=== PATIENT | male | born 1945 | race African-American/Black ===

== ENCOUNTER 2022-08-06 09:45 | Inpatient (IN) ==
[2022-08-06 10:21] LABS: Basophils % 0.3 % (0.0-0.8); Eosinophils % 0.3 % (0.00-10.9); Hematocrit 32.9 VOL% (42.0-52.0); Hemoglobin 10.1 GM/DL (14.0-18.0); Immature Granulocytes % 0.5 %; Immature Granulocytes Absolute 0.03 #; Lymphocytes # 1.2 10*3/uL (1.4-4.0); Lymphocytes % 20.4 % (21.2-54.2); Mean Corpuscular HGB Conc 30.7 GM/DL (32-36); Mean Corpuscular Volume 86.8 FL (87-102); Mean Platelet Volume 9.1 FL (9.6-12.0); Monocytes # 0.4 10*3/uL (0.11-0.8); Monocytes % 6.2 % (1.7-12.7); Neutrophils % 72.3 % (38.7-73.9); Platelet Count 281 T/CUMM (130-400); Red Blood Count 3.79 MC/CUMM (3.8-5.5); Red Cell Distribution Width 14.3 % (9.3-17.3)
[2022-08-06 10:45] LABS: Albumin 3.2 G/DL (3.4-5.0); Bilirubin,Total 0.4 MG/DL (0.20-1.00); Calcium 9.2 MG/DL (8.5-10.1); Osmolality,Calculated 281.7 MOS/KG (273-304); Potassium 3.9 MMOL/L (3.5-5.1); Total Protein 7.7 G/DL (6.4-8.2)
[2022-08-06] MEDS ORDERED: FUROSEMIDE 40 MG/4 ML VIAL IV STA (14:27)
[2022-08-06] MEDS ORDERED: NITROGLYCERIN 2% OINT 1 INCH/GM PACK TOP ONE (14:47)
[2022-08-06] MEDS ORDERED: ASPIRIN 325 MG TABLET ONE (14:47)
[2022-08-06] MEDS ORDERED: NITROGLYCERIN 2% OINT 1 INCH/GM PACK TOP STA (15:00)
[2022-08-06] MEDS ORDERED: ASPIRIN 325 MG TABLET PO STA (15:00)
[2022-08-06] MEDS ORDERED: ACETAMINOPHEN 325 MG TABLET PO PRN (15:14)
[2022-08-06] MEDS ORDERED: ONDANSETRON 4 MG/2 ML VIAL IV PRN (15:14)
[2022-08-06] MEDS ORDERED: hydrALAZINE 20 MG/1 ML VIAL IV PRN (15:14)
[2022-08-06] MEDS: ENOXAPARIN 80 MG/0.8 ML SYRINGE SUBCUT SCH (15:36)
[2022-08-06] MEDS: carvediloL 3.125 MG TABLET PO SCH (15:36)
[2022-08-06] MEDS ORDERED: MORPHINE 2 MG/1 ML SYRINGE IV STA (15:41)
[2022-08-06 16:13] LABS: % Iron Saturation 16.9 % (18-50); Ferritin 218.4 ng/mL (26-388)
[2022-08-06 16:14] LABS: Folate 8.64 NG/ML (5.38-24.0)
[2022-08-06] MEDS: FUROSEMIDE 40 MG/4 ML VIAL IV SCH (21:43)
[2022-08-07] MEDS: ENOXAPARIN 80 MG/0.8 ML SYRINGE SUBCUT SCH ×2 (04:05→15:57)
[2022-08-07] MEDS: carvediloL 3.125 MG TABLET PO SCH ×2 (04:05→15:57)
[2022-08-07 04:43] LABS: Basophils % 0.5 % (0.0-0.8); Eosinophils % 0.6 % (0.00-10.9); Hematocrit 30.9 VOL% (42.0-52.0); Hemoglobin 9.6 GM/DL (14.0-18.0); Immature Granulocytes % 0.5 %; Immature Granulocytes Absolute 0.03 #; Lymphocytes # 1.1 10*3/uL (1.4-4.0); Lymphocytes % 17.3 % (21.2-54.2); Mean Corpuscular HGB Conc 31.1 GM/DL (32-36); Mean Corpuscular Volume 84.4 FL (87-102); Mean Platelet Volume 9.3 FL (9.6-12.0); Monocytes # 0.4 10*3/uL (0.11-0.8); Monocytes % 5.7 % (1.7-12.7); Neutrophils % 75.4 % (38.7-73.9); Platelet Count 280 T/CUMM (130-400); Red Blood Count 3.66 MC/CUMM (3.8-5.5); Red Cell Distribution Width 14.3 % (9.3-17.3); White Blood Count 6.5 T/CUMM (4-12)
[2022-08-07 05:10] LABS: Albumin 2.7 G/DL (3.4-5.0); Bilirubin,Total 0.4 MG/DL (0.20-1.00); Calcium 9.2 MG/DL (8.5-10.1); Osmolality,Calculated 275.2 MOS/KG (273-304); Potassium 3.8 MMOL/L (3.5-5.1); Risk Ratio 4.31; Thyroid Stimulating Hormone 2.88 uIU/ml (0.358-3.74); Total Protein 7.5 G/DL (6.4-8.2); VLDL Cholesterol 20.6 MG/DL
[2022-08-07] MEDS: SIMVASTATIN 40 MG TABLET PO SCH (09:08)
[2022-08-07] MEDS: ASPIRIN EC 81 MG TABLET PO SCH (09:08)
[2022-08-07] MEDS: PANTOPRAZOLE 40 MG TABLET PO SCH (09:08)
[2022-08-07] MEDS: FUROSEMIDE 40 MG/4 ML VIAL IV SCH ×2 (09:09→22:09)
[2022-08-07] MEDS: hydrALAZINE 10 MG TABLET PO SCH ×3 (09:14→20:23)
[2022-08-07] MEDS: FERRIC GLUCONATE COMPLEX 125 MG in SODIUM CHLORIDE 0.9% 100 ML IV SCH (09:14)
[2022-08-07] MEDS: NICOTINE 14 MG/24 HR PATCH TRANSDERM SCH (09:14)
[2022-08-08 06:14] LABS: Osmolality,Calculated 274.2 MOS/KG (273-304); Potassium 3.4 MMOL/L (3.5-5.1)
[2022-08-08 06:34] LABS: Albumin 2.7 G/DL (3.4-5.0); Bilirubin,Direct 0.19 MG/DL (0.0-0.20); Bilirubin,Indirect 0.4 MG/DL (0.0-1.0); Bilirubin,Total 0.6 MG/DL (0.20-1.00); Total Protein 6.2 G/DL (6.4-8.2)
[2022-08-08] MEDS ORDERED: POTASSIUM CHLORIDE 20 MEQ TABLET PO ONE (08:19)
[2022-08-08 08:45] VITALS: BP 114/71
[2022-08-08] MEDS: FERRIC GLUCONATE COMPLEX 125 MG in SODIUM CHLORIDE 0.9% 100 ML IV SCH (08:48)
[2022-08-08] MEDS: ASPIRIN EC 81 MG TABLET PO SCH (08:50)
[2022-08-08] MEDS: PANTOPRAZOLE 40 MG TABLET PO SCH (08:50)
[2022-08-08] MEDS: FUROSEMIDE 40 MG/4 ML VIAL IV SCH (08:50)
[2022-08-08] MEDS: hydrALAZINE 10 MG TABLET PO SCH (08:50)
[2022-08-08] MEDS: SIMVASTATIN 40 MG TABLET PO SCH (08:51)
[2022-08-08] MEDS: NICOTINE 14 MG/24 HR PATCH TRANSDERM SCH (08:55)
[2022-08-08] MEDS ORDERED: ENOXAPARIN 80 MG/0.8 ML SYRINGE SUBCUT SCH (09:00)
[2022-08-08] MEDS ORDERED: carvediloL 3.125 MG TABLET PO SCH (09:00)
== END 2022-08-08 12:05 | disposition home or self-care (01) | DRG 280 ==
LOC: N.ED 09:45 → N.EDINP 15:14 → N.TELES 15:59
PROVIDERS: ADMIT Internal Medicine; ATTEND Internal Medicine

== ENCOUNTER 2022-09-09 07:56 | Inpatient (IN) ==
[2022-09-09 08:29] LABS: Basophils % 0.1 % (0.0-0.8); Hemoglobin 8.9 GM/DL (14.0-18.0); Immature Granulocytes Absolute 0.21 #; Lymphocytes # 2.3 10*3/uL (1.4-4.0); Mean Corpuscular HGB Conc 29.7 GM/DL (32-36); Mean Corpuscular Volume 84.5 FL (87-102); Mean Platelet Volume 8.7 FL (9.6-12.0); Monocytes # 1.3 10*3/uL (0.11-0.8); Monocytes % 6.5 % (1.7-12.7); Neutrophils % 81.4 % (38.7-73.9); Platelet Count 437 T/CUMM (130-400); Red Blood Count 3.55 MC/CUMM (3.8-5.5); Red Cell Distribution Width 16.9 % (9.3-17.3); White Blood Count 20.5 T/CUMM (4-12)
[2022-09-09 08:48] LABS: Platelet Estimate Adequate
[2022-09-09 08:49] LABS: Hypochromia Slight; Microcytosis Slight
[2022-09-09 08:55] LABS: Albumin 2.5 G/DL (3.4-5.0); Bilirubin,Total 1.2 MG/DL (0.20-1.00); Calcium 9.1 MG/DL (8.5-10.1); Osmolality,Calculated 288.1 MOS/KG (273-304); Potassium 5.2 MMOL/L (3.5-5.1); Total Protein 7.6 G/DL (6.4-8.2)
[2022-09-09 09:10] LABS: Lymphocytes 10 % (20-55); Total Cells Counted 100
[2022-09-09] MEDS ORDERED: MORPHINE 2 MG/1 ML SYRINGE IV ONE (09:19)
[2022-09-09] MEDS ORDERED: ONDANSETRON 4 MG/2 ML VIAL IV ONE (09:19)
[2022-09-09] MEDS ORDERED: ASPIRIN 325 MG TABLET PO STA (09:19)
[2022-09-09 09:55] LABS: INR 1.1; PT Patient Result 12.5 SECS (10.1-12.1)
[2022-09-09] MEDS ORDERED: PIPERACILLIN/TAZOBACTAM 3,375 MG in SODIUM CHLORIDE 0.9% 100 ML IV STA (10:11)
[2022-09-09] MEDS ORDERED: hydrALAZINE 20 MG/1 ML VIAL IV PRN (10:27)
[2022-09-09] MEDS ORDERED: DOCUSATE SODIUM 100 MG CAPSULE PO PRN (10:27)
[2022-09-09] MEDS ORDERED: MORPHINE 2 MG/1 ML SYRINGE IV PRN (10:27)
[2022-09-09] MEDS ORDERED: ONDANSETRON 4 MG/2 ML VIAL IV PRN (10:27)
[2022-09-09] MEDS ORDERED: carvediloL 3.125 MG TABLET PO SCH (10:30)
[2022-09-09] MEDS: SODIUM CHLORIDE 0.9% 1,000 ML IV SCH (10:52)
[2022-09-09] MEDS ORDERED: SODIUM CHLORIDE 0.9% 1,000 ML IV STA (11:00)
[2022-09-09] MEDS ORDERED: GLUCAGON 1 MG VIAL IM PRN (11:42)
[2022-09-09] MEDS ORDERED: DEXTROSE 10% 250 ML BAG IV PRN (11:47)
[2022-09-09 12:41] LABS: Cancer Antigen 19-9 4.89 U/ML (0-35); Prostate Specific Antigen Diag < 0.03 NG/ML (0-3.60)
[2022-09-09 13:15] LABS: Hepatitis B Core IgM Quant 0.06 Index; Hepatitis B Surface Ag Quant < 0.10 Index; Hepatitis B Surface Ag Result Non-Reactive (NonReactive); Hepatitis C Virus Ab Quant < 0.02 Index; Hepatitis C Virus Ab Result Non-Reactive (NonReactive)
[2022-09-09] MEDS ORDERED: SODIUM CHLORIDE 0.9% 500 ML IV STA (14:55)
[2022-09-09 15:33] LABS: Hematocrit 24.8 VOL% (42.0-52.0); Hemoglobin 7.5 GM/DL (14.0-18.0)
[2022-09-09 15:33] LABS: Amorphous Crystals,Urine Occasional /HPF (Few); Bacteria,Urine Occasional /HPF (Few); Hyaline Casts,Urine 1 /LPF (0-3); RBC,Urine 1 /HPF (0-4); Squamous Epithelial Cell,Urine Occasional /HPF (0-10); Urine Appearance Clear (Clear); Urine Color Yellow (Yellow)
[2022-09-09 15:34] LABS: Bilirubin,Urine Negative (Negative); Blood, Urine Negative (Negative); Glucose,Urine (UA) Negative (Negative); Ketones,Urine Negative (Negative); Nitrite,Urine Negative (Negative); Protein,Urine 100 mg/dL (Negative)
[2022-09-09] MEDS ORDERED: SODIUM CHLORIDE 0.9% 1,000 ML IV PRN ×2 (15:43→15:45)
[2022-09-09] MEDS: SODIUM ZIRCONIUM CYCLOSILICATE 10 GM PACK PO SCH ×2 (15:57→21:42)
[2022-09-09 16:22] LABS: Arterial Base Excess iSTAT -8 MMOL/L (-2.5-2.5); Arterial O2 Saturation iSTAT 98 % (95-100); Arterial PCO2 iSTAT 32 MM HG (35-48); Arterial PO2 iSTAT 110 MM HG (80-95); Arterial Total CO2 iSTAT 18 MMO/L (23-27); Arterial pH iSTAT 7.338 (7.35-7.45)
[2022-09-09 17:01] LABS: Basophils % 0.1 % (0.0-0.8); Hematocrit 25.9 VOL% (42.0-52.0); Hemoglobin 7.7 GM/DL (14.0-18.0); Immature Granulocytes % 0.9 %; Immature Granulocytes Absolute 0.14 #; Lymphocytes # 1.4 10*3/uL (1.4-4.0); Lymphocytes % 8.3 % (21.2-54.2); Mean Corpuscular HGB Conc 29.7 GM/DL (32-36); Mean Corpuscular Volume 84.9 FL (87-102); Mean Platelet Volume 8.8 FL (9.6-12.0); Monocytes # 0.9 10*3/uL (0.11-0.8); Monocytes % 5.6 % (1.7-12.7); Neutrophils % 85.1 % (38.7-73.9); Platelet Count 340 T/CUMM (130-400); Red Blood Count 3.05 MC/CUMM (3.8-5.5); Red Cell Distribution Width 16.9 % (9.3-17.3); White Blood Count 16.2 T/CUMM (4-12)
[2022-09-09] MEDS ORDERED: SODIUM CHLORIDE 0.9% 1,000 ML IV ONE (17:13)
[2022-09-09 17:19] LABS: Calcium 8.4 MG/DL (8.5-10.1); Potassium 5.4 MMOL/L (3.5-5.1)
[2022-09-09] MEDS ORDERED: SODIUM BICARBONATE 50 MEQ/50 ML VIAL IV ONE (17:25)
[2022-09-09] MEDS ORDERED: DOPamine 800 MG/250 ML PREMIX IV PRN (17:28)
[2022-09-09] MEDS: INSULIN LISPRO 100 UNIT/ML SUBCUT SCH ×2 (17:40→21:42)
[2022-09-09] MEDS: PIPERACILLIN/TAZOBACTAM 3,375 MG in SODIUM CHLORIDE 0.9% 100 ML IV SCH (18:30)
[2022-09-10] MEDS: PIPERACILLIN/TAZOBACTAM 3,375 MG in SODIUM CHLORIDE 0.9% 100 ML IV SCH ×3 (03:28→18:00)
[2022-09-10] MEDS: SODIUM CHLORIDE 0.9% 1,000 ML IV SCH ×3 (03:30→23:15)
[2022-09-10 05:02] LABS: Basophils % 0.1 % (0.0-0.8); Eosinophils % 0.1 % (0.00-10.9); Hematocrit 29.1 VOL% (42.0-52.0); Hemoglobin 9.1 GM/DL (14.0-18.0); Immature Granulocytes % 1.2 %; Immature Granulocytes Absolute 0.19 #; Lymphocytes # 1.2 10*3/uL (1.4-4.0); Lymphocytes % 7.9 % (21.2-54.2); Mean Corpuscular HGB Conc 31.3 GM/DL (32-36); Mean Corpuscular Volume 84.3 FL (87-102); Mean Platelet Volume 8.9 FL (9.6-12.0); Monocytes # 0.8 10*3/uL (0.11-0.8); Monocytes % 5.2 % (1.7-12.7); Neutrophils % 85.5 % (38.7-73.9); Platelet Count 311 T/CUMM (130-400); Red Blood Count 3.45 MC/CUMM (3.8-5.5); Red Cell Distribution Width 16.4 % (9.3-17.3); White Blood Count 15.5 T/CUMM (4-12)
[2022-09-10 05:30] LABS: Albumin 1.7 G/DL (3.4-5.0); Bilirubin,Total 0.8 MG/DL (0.20-1.00); Calcium 8.4 MG/DL (8.5-10.1); Potassium 4.8 MMOL/L (3.5-5.1); Total Protein 6.1 G/DL (6.4-8.2)
[2022-09-10] MEDS: INSULIN LISPRO 100 UNIT/ML SUBCUT SCH ×4 (07:10→20:44)
[2022-09-10] MEDS ORDERED: ASPIRIN EC 81 MG TABLET PO SCH (09:00)
[2022-09-10] MEDS ORDERED: FUROSEMIDE 40 MG TABLET PO SCH (09:00)
[2022-09-10] MEDS: SODIUM ZIRCONIUM CYCLOSILICATE 10 GM PACK PO SCH ×3 (09:05→20:45)
[2022-09-10] MEDS: NICOTINE 14 MG/24 HR PATCH TRANSDERM SCH (09:05)
[2022-09-10] MEDS: CYANOCOBALAMIN 500 MCG TABLET PO SCH (09:05)
[2022-09-10] MEDS: MULTIVITAMIN (CENTRUM) TABLET PO SCH (09:05)
[2022-09-10] MEDS: FERROUS SULFATE 325 MG TABLET PO SCH (09:05)
[2022-09-10] MEDS: PANTOPRAZOLE 40 MG TABLET PO SCH (09:05)
[2022-09-10] MEDS ORDERED: SODIUM CHLORIDE 0.9% 500 ML IV ONE (11:45)
[2022-09-11] MEDS: PIPERACILLIN/TAZOBACTAM 3,375 MG in SODIUM CHLORIDE 0.9% 100 ML IV SCH ×3 (02:39→18:00)
[2022-09-11 04:42] LABS: Basophils % 0.1 % (0.0-0.8); Eosinophils % 0.1 % (0.00-10.9); Hematocrit 28.1 VOL% (42.0-52.0); Hemoglobin 8.8 GM/DL (14.0-18.0); Immature Granulocytes % 1.2 %; Immature Granulocytes Absolute 0.19 #; Lymphocytes # 1.5 10*3/uL (1.4-4.0); Lymphocytes % 9.5 % (21.2-54.2); Mean Corpuscular HGB Conc 31.3 GM/DL (32-36); Mean Corpuscular Volume 83.9 FL (87-102); Mean Platelet Volume 8.6 FL (9.6-12.0); Monocytes # 0.9 10*3/uL (0.11-0.8); Monocytes % 5.6 % (1.7-12.7); Neutrophils % 83.5 % (38.7-73.9); Platelet Count 264 T/CUMM (130-400); Red Blood Count 3.35 MC/CUMM (3.8-5.5); Red Cell Distribution Width 16.6 % (9.3-17.3); White Blood Count 15.3 T/CUMM (4-12)
[2022-09-11 05:08] LABS: Albumin 1.5 G/DL (3.4-5.0); Bilirubin,Total 0.7 MG/DL (0.20-1.00); Calcium 8.3 MG/DL (8.5-10.1); Osmolality,Calculated 290.7 MOS/KG (273-304); Potassium 4.3 MMOL/L (3.5-5.1); Total Protein 5.8 G/DL (6.4-8.2)
[2022-09-11] MEDS: SODIUM CHLORIDE 0.9% 1,000 ML IV SCH (07:00)
[2022-09-11] MEDS: INSULIN LISPRO 100 UNIT/ML SUBCUT SCH ×4 (07:05→20:02)
[2022-09-11] MEDS: SODIUM ZIRCONIUM CYCLOSILICATE 10 GM PACK PO SCH (08:30)
[2022-09-11] MEDS: CYANOCOBALAMIN 500 MCG TABLET PO SCH (08:30)
[2022-09-11] MEDS: PANTOPRAZOLE 40 MG TABLET PO SCH ×2 (08:30→20:08)
[2022-09-11] MEDS: MULTIVITAMIN (CENTRUM) TABLET PO SCH (08:30)
[2022-09-11] MEDS: FERROUS SULFATE 325 MG TABLET PO SCH (08:30)
[2022-09-11] MEDS: NICOTINE 14 MG/24 HR PATCH TRANSDERM SCH (08:35)
[2022-09-11] MEDS ORDERED: POLYETHYLENE GLYCOL POWDER 17 GM PACK PO PRN (09:31)
[2022-09-11] MEDS ORDERED: LACTATED RINGERS 1,000 ML IV ONE (11:34)
[2022-09-12] MEDS: PIPERACILLIN/TAZOBACTAM 3,375 MG in SODIUM CHLORIDE 0.9% 100 ML IV SCH ×3 (03:07→18:23)
[2022-09-12 05:37] LABS: Basophils % 0.2 % (0.0-0.8); Eosinophils % 0.3 % (0.00-10.9); Hematocrit 28.8 VOL% (42.0-52.0); Immature Granulocytes % 1.4 %; Immature Granulocytes Absolute 0.19 #; Lymphocytes # 1.4 10*3/uL (1.4-4.0); Lymphocytes % 9.9 % (21.2-54.2); Mean Corpuscular HGB Conc 31.3 GM/DL (32-36); Mean Corpuscular Volume 85.2 FL (87-102); Mean Platelet Volume 9.2 FL (9.6-12.0); Monocytes # 0.8 10*3/uL (0.11-0.8); Neutrophils % 82.2 % (38.7-73.9); Platelet Count 275 T/CUMM (130-400); Red Blood Count 3.38 MC/CUMM (3.8-5.5); Red Cell Distribution Width 16.9 % (9.3-17.3); White Blood Count 13.9 T/CUMM (4-12)
[2022-09-12 06:05] LABS: Albumin 1.4 G/DL (3.4-5.0); Bilirubin,Total 0.8 MG/DL (0.20-1.00); Calcium 8.2 MG/DL (8.5-10.1); Osmolality,Calculated 286.7 MOS/KG (273-304); Potassium 4.3 MMOL/L (3.5-5.1); Total Protein 5.5 G/DL (6.4-8.2)
[2022-09-12] MEDS: INSULIN LISPRO 100 UNIT/ML SUBCUT SCH ×4 (09:55→20:29)
[2022-09-12] MEDS: SODIUM BICARBONATE 650 MG TABLET PO SCH ×2 (09:56→20:48)
[2022-09-12] MEDS: NICOTINE 14 MG/24 HR PATCH TRANSDERM SCH (09:56)
[2022-09-12] MEDS: FERROUS SULFATE 325 MG TABLET PO SCH (09:56)
[2022-09-12] MEDS: MULTIVITAMIN (CENTRUM) TABLET PO SCH (09:56)
[2022-09-12] MEDS: PANTOPRAZOLE 40 MG TABLET PO SCH ×2 (09:56→20:48)
[2022-09-12] MEDS: CYANOCOBALAMIN 500 MCG TABLET PO SCH (09:57)
[2022-09-13] MEDS: PIPERACILLIN/TAZOBACTAM 3,375 MG in SODIUM CHLORIDE 0.9% 100 ML IV SCH ×3 (01:32→18:28)
[2022-09-13 06:33] LABS: Basophils % 0.2 % (0.0-0.8); Eosinophils % 0.3 % (0.00-10.9); Hematocrit 28.6 VOL% (42.0-52.0); Hemoglobin 8.9 GM/DL (14.0-18.0); Immature Granulocytes % 0.8 %; Lymphocytes # 1.6 10*3/uL (1.4-4.0); Lymphocytes % 12.1 % (21.2-54.2); Mean Corpuscular HGB Conc 31.1 GM/DL (32-36); Mean Corpuscular Volume 85.4 FL (87-102); Mean Platelet Volume 9.6 FL (9.6-12.0); Monocytes # 0.9 10*3/uL (0.11-0.8); Monocytes % 6.8 % (1.7-12.7); Neutrophils % 79.8 % (38.7-73.9); Platelet Count 273 T/CUMM (130-400); Red Blood Count 3.35 MC/CUMM (3.8-5.5); Red Cell Distribution Width 16.9 % (9.3-17.3); White Blood Count 12.8 T/CUMM (4-12)
[2022-09-13 06:52] LABS: Albumin 1.5 G/DL (3.4-5.0); Bilirubin,Total 0.7 MG/DL (0.20-1.00); Calcium 8.4 MG/DL (8.5-10.1); Osmolality,Calculated 283.8 MOS/KG (273-304); Potassium 4.3 MMOL/L (3.5-5.1); Total Protein 5.7 G/DL (6.4-8.2)
[2022-09-13] MEDS: INSULIN LISPRO 100 UNIT/ML SUBCUT SCH ×4 (08:08→21:08)
[2022-09-13] MEDS: MULTIVITAMIN (CENTRUM) TABLET PO SCH (09:47)
[2022-09-13] MEDS: SODIUM BICARBONATE 650 MG TABLET PO SCH ×2 (09:47→21:08)
[2022-09-13] MEDS: NICOTINE 14 MG/24 HR PATCH TRANSDERM SCH (09:47)
[2022-09-13] MEDS: PANTOPRAZOLE 40 MG TABLET PO SCH ×2 (09:48→21:08)
[2022-09-13] MEDS: FERROUS SULFATE 325 MG TABLET PO SCH (09:48)
[2022-09-13] MEDS: CYANOCOBALAMIN 500 MCG TABLET PO SCH (09:48)
[2022-09-13] MEDS ORDERED: LACTULOSE 20 GM/30 ML UDCUP PO ONE (16:16)
[2022-09-13] MEDS: LUBIPROSTONE 8 MCG CAPSULE PO SCH (21:08)
[2022-09-13] MEDS: POLYETHYLENE GLYCOL POWDER 17 GM PACK PO SCH (21:10)
[2022-09-14] MEDS: PIPERACILLIN/TAZOBACTAM 3,375 MG in SODIUM CHLORIDE 0.9% 100 ML IV SCH ×3 (02:06→17:35)
[2022-09-14 06:16] LABS: Basophils % 0.2 % (0.0-0.8); Eosinophils % 0.3 % (0.00-10.9); Hematocrit 27.7 VOL% (42.0-52.0); Hemoglobin 8.6 GM/DL (14.0-18.0); Immature Granulocytes % 0.9 %; Immature Granulocytes Absolute 0.11 #; Lymphocytes # 1.6 10*3/uL (1.4-4.0); Lymphocytes % 12.7 % (21.2-54.2); Mean Corpuscular Volume 84.2 FL (87-102); Mean Platelet Volume 9.3 FL (9.6-12.0); Monocytes # 0.9 10*3/uL (0.11-0.8); Monocytes % 7.1 % (1.7-12.7); Neutrophils % 78.8 % (38.7-73.9); Platelet Count 249 T/CUMM (130-400); Red Blood Count 3.29 MC/CUMM (3.8-5.5); Red Cell Distribution Width 17.2 % (9.3-17.3); White Blood Count 12.7 T/CUMM (4-12)
[2022-09-14 06:34] LABS: Albumin 1.5 G/DL (3.4-5.0); Bilirubin,Total 0.6 MG/DL (0.20-1.00); Calcium 8.4 MG/DL (8.5-10.1); Osmolality,Calculated 284.7 MOS/KG (273-304); Potassium 4.3 MMOL/L (3.5-5.1); Total Protein 5.8 G/DL (6.4-8.2)
[2022-09-14] MEDS: SODIUM BICARBONATE 650 MG TABLET PO SCH ×2 (09:52→21:13)
[2022-09-14] MEDS: CYANOCOBALAMIN 500 MCG TABLET PO SCH (09:52)
[2022-09-14] MEDS: NICOTINE 14 MG/24 HR PATCH TRANSDERM SCH (09:53)
[2022-09-14] MEDS: PANTOPRAZOLE 40 MG TABLET PO SCH ×2 (09:53→21:13)
[2022-09-14] MEDS: MULTIVITAMIN (CENTRUM) TABLET PO SCH (09:53)
[2022-09-14] MEDS: FERROUS SULFATE 325 MG TABLET PO SCH (09:53)
[2022-09-14] MEDS: LUBIPROSTONE 8 MCG CAPSULE PO SCH (09:53)
[2022-09-14] MEDS: INSULIN LISPRO 100 UNIT/ML SUBCUT SCH ×4 (09:56→21:12)
[2022-09-14] MEDS: POLYETHYLENE GLYCOL POWDER 17 GM PACK PO SCH (09:56)
[2022-09-14] MEDS: LINACLOTIDE 145 MCG CAPSULE PO SCH (09:56)
[2022-09-15] MEDS: PIPERACILLIN/TAZOBACTAM 3,375 MG in SODIUM CHLORIDE 0.9% 100 ML IV SCH ×3 (01:52→17:42)
[2022-09-15 06:21] LABS: INR 1.1; PT Patient Result 12.4 SECS (10.1-12.1)
[2022-09-15 06:31] LABS: Osmolality,Calculated 277.1 MOS/KG (273-304); Potassium 4.3 MMOL/L (3.5-5.1)
[2022-09-15 07:08] LABS: Basophils % 0.3 % (0.0-0.8); Eosinophils # 0.1 10*3/uL (0.0-0.87); Eosinophils % 0.5 % (0.00-10.9); Hematocrit 33.3 VOL% (42.0-52.0); Hemoglobin 10.1 GM/DL (14.0-18.0); Immature Granulocytes % 1.1 %; Immature Granulocytes Absolute 0.15 #; Lymphocytes # 1.4 10*3/uL (1.4-4.0); Lymphocytes % 10.2 % (21.2-54.2); Mean Corpuscular HGB Conc 30.3 GM/DL (32-36); Mean Corpuscular Volume 85.4 FL (87-102); Mean Platelet Volume 9.4 FL (9.6-12.0); Monocytes % 7.1 % (1.7-12.7); Neutrophils % 80.8 % (38.7-73.9); Platelet Count 294 T/CUMM (130-400); Red Cell Distribution Width 17.3 % (9.3-17.3); White Blood Count 13.6 T/CUMM (4-12)
[2022-09-15] MEDS: INSULIN LISPRO 100 UNIT/ML SUBCUT SCH ×4 (09:03→20:49)
[2022-09-15] MEDS ORDERED: DIAZEPAM 5 MG TABLET PO ONE (12:55)
[2022-09-15] MEDS: FERROUS SULFATE 325 MG TABLET PO SCH (15:18)
[2022-09-15] MEDS: SODIUM BICARBONATE 650 MG TABLET PO SCH ×3 (15:18→21:25)
[2022-09-15] MEDS: MULTIVITAMIN (CENTRUM) TABLET PO SCH (15:18)
[2022-09-15] MEDS: LINACLOTIDE 145 MCG CAPSULE PO SCH (15:18)
[2022-09-15] MEDS: PANTOPRAZOLE 40 MG TABLET PO SCH ×3 (15:18→21:25)
[2022-09-15] MEDS: CYANOCOBALAMIN 500 MCG TABLET PO SCH (15:19)
[2022-09-15] MEDS: NICOTINE 14 MG/24 HR PATCH TRANSDERM SCH (15:51)
[2022-09-16] MEDS: PIPERACILLIN/TAZOBACTAM 3,375 MG in SODIUM CHLORIDE 0.9% 100 ML IV SCH ×3 (02:21→18:22)
[2022-09-16 05:29] LABS: Basophils % 0.3 % (0.0-0.8); Eosinophils # 0.1 10*3/uL (0.0-0.87); Eosinophils % 0.8 % (0.00-10.9); Hematocrit 29.1 VOL% (42.0-52.0); Hemoglobin 8.9 GM/DL (14.0-18.0); Immature Granulocytes % 0.7 %; Immature Granulocytes Absolute 0.09 #; Lymphocytes # 1.6 10*3/uL (1.4-4.0); Lymphocytes % 12.7 % (21.2-54.2); Mean Corpuscular HGB Conc 30.6 GM/DL (32-36); Mean Corpuscular Volume 86.4 FL (87-102); Mean Platelet Volume 9.4 FL (9.6-12.0); Monocytes # 0.9 10*3/uL (0.11-0.8); Monocytes % 7.1 % (1.7-12.7); Neutrophils % 78.4 % (38.7-73.9); Platelet Count 288 T/CUMM (130-400); Red Blood Count 3.37 MC/CUMM (3.8-5.5); Red Cell Distribution Width 17.5 % (9.3-17.3); White Blood Count 12.4 T/CUMM (4-12)
[2022-09-16 06:19] LABS: Calcium 8.1 MG/DL (8.5-10.1); Osmolality,Calculated 282.7 MOS/KG (273-304); Potassium 4.2 MMOL/L (3.5-5.1)
[2022-09-16] MEDS ORDERED: DIAZEPAM 5 MG TABLET PO ONE (07:29)
[2022-09-16] MEDS: INSULIN LISPRO 100 UNIT/ML SUBCUT SCH ×4 (07:56→20:22)
[2022-09-16] MEDS: LINACLOTIDE 145 MCG CAPSULE PO SCH (07:58)
[2022-09-16] MEDS: NICOTINE 14 MG/24 HR PATCH TRANSDERM SCH (09:19)
[2022-09-16] MEDS: CYANOCOBALAMIN 500 MCG TABLET PO SCH (09:19)
[2022-09-16] MEDS: MULTIVITAMIN (CENTRUM) TABLET PO SCH (09:19)
[2022-09-16] MEDS: SODIUM BICARBONATE 650 MG TABLET PO SCH ×2 (09:19→20:48)
[2022-09-16] MEDS: PANTOPRAZOLE 40 MG TABLET PO SCH ×2 (09:19→20:48)
[2022-09-16] MEDS: FERROUS SULFATE 325 MG TABLET PO SCH (09:19)
[2022-09-17] MEDS: PIPERACILLIN/TAZOBACTAM 3,375 MG in SODIUM CHLORIDE 0.9% 100 ML IV SCH (01:52)
[2022-09-17 06:00] LABS: Basophils % 0.3 % (0.0-0.8); Eosinophils % 0.3 % (0.00-10.9); Hematocrit 28.4 VOL% (42.0-52.0); Hemoglobin 8.5 GM/DL (14.0-18.0); Immature Granulocytes % 0.8 %; Lymphocytes # 1.4 10*3/uL (1.4-4.0); Lymphocytes % 12.1 % (21.2-54.2); Mean Corpuscular HGB Conc 29.9 GM/DL (32-36); Mean Corpuscular Volume 85.8 FL (87-102); Mean Platelet Volume 9.2 FL (9.6-12.0); Monocytes # 0.8 10*3/uL (0.11-0.8); Monocytes % 6.9 % (1.7-12.7); Neutrophils % 79.6 % (38.7-73.9); Platelet Count 254 T/CUMM (130-400); Red Blood Count 3.31 MC/CUMM (3.8-5.5); Red Cell Distribution Width 17.8 % (9.3-17.3); White Blood Count 11.9 T/CUMM (4-12)
[2022-09-17 06:33] LABS: Calcium 7.6 MG/DL (8.5-10.1); Osmolality,Calculated 281.7 MOS/KG (273-304); Potassium 4.6 MMOL/L (3.5-5.1)
[2022-09-17] MEDS: INSULIN LISPRO 100 UNIT/ML SUBCUT SCH ×4 (07:46→20:14)
[2022-09-17] MEDS: NICOTINE 14 MG/24 HR PATCH TRANSDERM SCH (09:10)
[2022-09-17] MEDS: PANTOPRAZOLE 40 MG TABLET PO SCH ×2 (09:10→20:14)
[2022-09-17] MEDS: CYANOCOBALAMIN 500 MCG TABLET PO SCH (09:10)
[2022-09-17] MEDS: SODIUM BICARBONATE 650 MG TABLET PO SCH ×2 (09:10→20:14)
[2022-09-17] MEDS: MULTIVITAMIN (CENTRUM) TABLET PO SCH (09:10)
[2022-09-17] MEDS: LINACLOTIDE 145 MCG CAPSULE PO SCH (09:10)
[2022-09-17] MEDS ORDERED: MAGNESIUM HYDROXIDE SUSP 30 ML UDCUP PO ONE (13:54)
[2022-09-17] MEDS: DOCUSATE SODIUM 100 MG CAPSULE PO SCH ×2 (14:52→20:14)
[2022-09-17] MEDS: POLYETHYLENE GLYCOL POWDER 17 GM PACK PO SCH ×2 (14:52→22:00)
[2022-09-17] MEDS ORDERED: BISACODYL 5 MG TABLET PO ONE (16:42)
[2022-09-17] MEDS ORDERED: POLYETHYLENE GLYCOL POWDER 255 GM BOTTLE PO ONE ×2 (16:42→18:00)
[2022-09-18] MEDS ORDERED: POLYETHYLENE GLYCOL POWDER 255 GM BOTTLE PO ONE (04:00)
[2022-09-18 05:03] LABS: Basophils % 0.1 % (0.0-0.8); Eosinophils % 0.1 % (0.00-10.9); Hematocrit 28.7 VOL% (42.0-52.0); Hemoglobin 9.1 GM/DL (14.0-18.0); Immature Granulocytes % 0.8 %; Immature Granulocytes Absolute 0.12 #; Lymphocytes # 1.3 10*3/uL (1.4-4.0); Lymphocytes % 8.5 % (21.2-54.2); Mean Corpuscular HGB Conc 31.7 GM/DL (32-36); Mean Corpuscular Volume 84.4 FL (87-102); Mean Platelet Volume 9.4 FL (9.6-12.0); Monocytes % 6.4 % (1.7-12.7); Neutrophils % 84.1 % (38.7-73.9); Platelet Count 254 T/CUMM (130-400); Red Cell Distribution Width 17.8 % (9.3-17.3); White Blood Count 15.4 T/CUMM (4-12)
[2022-09-18 05:24] LABS: Calcium 8.4 MG/DL (8.5-10.1); Osmolality,Calculated 279.1 MOS/KG (273-304); Potassium 3.8 MMOL/L (3.5-5.1)
[2022-09-18] MEDS: INSULIN LISPRO 100 UNIT/ML SUBCUT SCH ×4 (07:16→20:32)
[2022-09-18] MEDS: POLYETHYLENE GLYCOL POWDER 17 GM PACK PO SCH ×2 (08:56→20:31)
[2022-09-18] MEDS: LINACLOTIDE 145 MCG CAPSULE PO SCH (08:56)
[2022-09-18] MEDS: DOCUSATE SODIUM 100 MG CAPSULE PO SCH ×2 (08:56→20:31)
[2022-09-18] MEDS: SODIUM CHLORIDE 0.9% 1,000 ML IV SCH (11:18)
[2022-09-18] MEDS ORDERED: propofoL 200 MG/20 ML VIAL IV ONE (12:03)
[2022-09-18] MEDS ORDERED: LIDOCAINE 2% 5 ML VIAL ONE (12:03)
[2022-09-18] MEDS ORDERED: ESMOLOL 100 MG/10 ML VIAL IV ONE (12:05)
[2022-09-18] MEDS: MULTIVITAMIN (CENTRUM) TABLET PO SCH (14:06)
[2022-09-18] MEDS: PANTOPRAZOLE 40 MG TABLET PO SCH ×2 (14:07→20:30)
[2022-09-18] MEDS: NICOTINE 14 MG/24 HR PATCH TRANSDERM SCH (14:07)
[2022-09-18] MEDS: CYANOCOBALAMIN 500 MCG TABLET PO SCH (14:07)
[2022-09-18] MEDS: SODIUM BICARBONATE 650 MG TABLET PO SCH ×2 (14:07→20:31)
[2022-09-19 05:16] LABS: Basophils % 0.2 % (0.0-0.8); Eosinophils % 0.1 % (0.00-10.9); Hematocrit 28.3 VOL% (42.0-52.0); Hemoglobin 8.6 GM/DL (14.0-18.0); Immature Granulocytes Absolute 0.17 #; Lymphocytes # 1.5 10*3/uL (1.4-4.0); Lymphocytes % 8.8 % (21.2-54.2); Mean Corpuscular HGB Conc 30.4 GM/DL (32-36); Mean Corpuscular Volume 83.5 FL (87-102); Mean Platelet Volume 9.5 FL (9.6-12.0); Monocytes % 5.5 % (1.7-12.7); Neutrophils % 84.4 % (38.7-73.9); Platelet Count 251 T/CUMM (130-400); Red Blood Count 3.39 MC/CUMM (3.8-5.5); White Blood Count 17.2 T/CUMM (4-12)
[2022-09-19 05:30] LABS: Calcium 8.3 MG/DL (8.5-10.1); Potassium 3.9 MMOL/L (3.5-5.1)
[2022-09-19] MEDS: INSULIN LISPRO 100 UNIT/ML SUBCUT SCH ×2 (08:25→12:36)
[2022-09-19] MEDS: NICOTINE 14 MG/24 HR PATCH TRANSDERM SCH (09:13)
[2022-09-19] MEDS: SODIUM BICARBONATE 650 MG TABLET PO SCH (09:14)
[2022-09-19] MEDS: PANTOPRAZOLE 40 MG TABLET PO SCH (09:14)
[2022-09-19] MEDS: CYANOCOBALAMIN 500 MCG TABLET PO SCH (09:14)
[2022-09-19] MEDS: MULTIVITAMIN (CENTRUM) TABLET PO SCH (09:14)
[2022-09-19] MEDS: DOCUSATE SODIUM 100 MG CAPSULE PO SCH (09:26)
[2022-09-19] MEDS: POLYETHYLENE GLYCOL POWDER 17 GM PACK PO SCH (09:26)
[2022-09-19] MEDS ORDERED: LUBIPROSTONE 8 MCG CAPSULE PO SCH (10:30)
[2022-09-19 11:17] VITALS: BP 107/52
[2022-09-19] MEDS: SODIUM CHLORIDE 0.9% 500 ML IV SCH (11:47)
[2022-09-19] MEDS: SODIUM CHLORIDE 0.9% 1,000 ML IV SCH (11:47)
== END 2022-09-19 13:20 | disposition home or self-care (01) | DRG 375 ==
LOC: N.ED 07:56 → N.EDINP 10:27 → SUATTDRO 10:27 → N.ICU 16:07 → N.3E 09-12 20:20
PROVIDERS: ADMIT Internal Medicine; ATTEND Hospitalist

== ENCOUNTER 2022-09-28 23:02 | Inpatient (IN) ==
[2022-09-28] MEDS ORDERED: SODIUM CHLORIDE 0.9% 1,000 ML IV STA (23:38)
[2022-09-28] MEDS ORDERED: PANTOPRAZOLE 40 MG VIAL IV STA (23:38)
[2022-09-28 23:46] LABS: Basophils % 0.1 % (0.0-0.8); Hematocrit 26.9 VOL% (42.0-52.0); Hemoglobin 8.6 GM/DL (14.0-18.0); Immature Granulocytes % 1.3 %; Immature Granulocytes Absolute 0.27 #; Lymphocytes # 1.4 10*3/uL (1.4-4.0); Lymphocytes % 6.7 % (21.2-54.2); Mean Platelet Volume 10.4 FL (9.6-12.0); Monocytes % 5.1 % (1.7-12.7); Neutrophils % 86.8 % (38.7-73.9); Platelet Count 274 T/CUMM (130-400); Red Blood Count 3.28 MC/CUMM (3.8-5.5); Red Cell Distribution Width 19.9 % (9.3-17.3); White Blood Count 20.6 T/CUMM (4-12)
[2022-09-28 23:55] LABS: INR 1.3; PT Patient Result 14.5 SECS (10.1-12.1); Partial Thromboplastin Time 41.1 SECS (23.7-32.9)
[2022-09-29 00:05] LABS: Albumin 1.7 G/DL (3.4-5.0); Bilirubin,Total 1.3 MG/DL (0.20-1.00); Calcium 8.1 MG/DL (8.5-10.1); Osmolality,Calculated 292.1 MOS/KG (273-304); Potassium 4.5 MMOL/L (3.5-5.1); Total Protein 5.4 G/DL (6.4-8.2)
[2022-09-29 01:56] LABS: Lymphocytes 2 % (20-55); Platelet Estimate Normal; Total Cells Counted 100
[2022-09-29 01:57] LABS: Anisocytosis 1+; Polychromasia Few; Schistocytes Few
[2022-09-29] MEDS ORDERED: SODIUM CHLORIDE 0.9% 1,000 ML IV STA (02:52)
[2022-09-29] MEDS ORDERED: SIMETHICONE CHEW 125 MG TABLET PO PRN (03:58)
[2022-09-29] MEDS ORDERED: ONDANSETRON 4 MG/2 ML VIAL IV PRN (03:58)
[2022-09-29] MEDS ORDERED: cefTRIAXone 1,000 MG in SODIUM CHLORIDE 0.9% 100 ML IV SCH (05:00)
[2022-09-29] MEDS ORDERED: AZITHROMYCIN INJ 500 MG in SODIUM CHLORIDE 0.9% 250 ML IV SCH (05:00)
[2022-09-29] MEDS: [UNRECOGNIZED DRUG - OTHER] IV SCH ×2 (05:40→22:43)
[2022-09-29] MEDS: SODIUM CHLORIDE IV SCH ×2 (05:40→22:43)
[2022-09-29] MEDS: SODIUM BICARB IV SCH ×2 (05:40→22:43)
[2022-09-29] MEDS ORDERED: VANCOMYCIN INJ 1,500 MG in SODIUM CHLORIDE 0.9% 500 ML IV SCH (07:00)
[2022-09-29] MEDS ORDERED: VANCOMYCIN INJ 1,500 MG in SODIUM CHLORIDE 0.9% 500 ML IV PRN (08:52)
[2022-09-29] MEDS ORDERED: VANCOMYCIN INJ 2,000 MG in SODIUM CHLORIDE 0.9% 500 ML IV ONE (10:00)
[2022-09-29] MEDS: PANTOPRAZOLE 40 MG TABLET PO SCH (11:01)
[2022-09-29] MEDS: DOCUSATE SODIUM 100 MG CAPSULE PO SCH ×2 (11:01→22:29)
[2022-09-29] MEDS: HEPARIN 5,000 UNIT/1 ML VIAL SUBCUT SCH ×2 (11:01→22:29)
[2022-09-29] MEDS: MEROPENEM 500 MG in SODIUM CHLORIDE 0.9% 100 ML IV SCH ×2 (11:02→22:28)
[2022-09-29 11:40] LABS: Basophils % 0.1 % (0.0-0.8); Hematocrit 26.3 VOL% (42.0-52.0); Hemoglobin 8.4 GM/DL (14.0-18.0); Immature Granulocytes % 1.3 %; Lymphocytes # 1.1 10*3/uL (1.4-4.0); Lymphocytes % 4.4 % (21.2-54.2); Mean Corpuscular HGB Conc 31.9 GM/DL (32-36); Mean Corpuscular Volume 82.4 FL (87-102); Mean Platelet Volume 9.1 FL (9.6-12.0); Monocytes # 1.1 10*3/uL (0.11-0.8); Monocytes % 4.8 % (1.7-12.7); Neutrophils % 89.4 % (38.7-73.9); Platelet Count 249 T/CUMM (130-400); Red Blood Count 3.19 MC/CUMM (3.8-5.5); Red Cell Distribution Width 19.9 % (9.3-17.3); White Blood Count 23.8 T/CUMM (4-12)
[2022-09-29 11:56] LABS: Calcium 8.2 MG/DL (8.5-10.1); Osmolality,Calculated 298.7 MOS/KG (273-304); Potassium 4.3 MMOL/L (3.5-5.1)
[2022-09-29 12:21] LABS: Anisocytosis 1+; Band Neutrophils 17 % (0-10); Burr Cells Few; Lymphocytes 8 % (20-55); Platelet Estimate Normal; Total Cells Counted 100
[2022-09-29] MEDS: FERRIC GLUCONATE COMPLEX 125 MG in SODIUM CHLORIDE 0.9% 100 ML IV SCH (14:52)
[2022-09-29] MEDS: POLYETHYLENE GLYCOL POWDER 17 GM PACK PO SCH (22:28)
[2022-09-29] MEDS: SODIUM BICARBONATE 650 MG TABLET PO SCH (22:29)
[2022-09-30] MEDS: SODIUM BICARB IV SCH ×3 (04:54→23:27)
[2022-09-30] MEDS: SODIUM CHLORIDE IV SCH ×3 (04:54→23:27)
[2022-09-30] MEDS: [UNRECOGNIZED DRUG - OTHER] IV SCH ×3 (04:54→23:27)
[2022-09-30 05:03] LABS: Basophils % 0.1 % (0.0-0.8); Hematocrit 22.9 VOL% (42.0-52.0); Hemoglobin 7.5 GM/DL (14.0-18.0); Immature Granulocytes % 1.5 %; Immature Granulocytes Absolute 0.32 #; Lymphocytes # 1.5 10*3/uL (1.4-4.0); Lymphocytes % 7.2 % (21.2-54.2); Mean Corpuscular HGB Conc 32.8 GM/DL (32-36); Mean Corpuscular Volume 80.6 FL (87-102); Mean Platelet Volume 10.1 FL (9.6-12.0); Monocytes % 4.8 % (1.7-12.7); Neutrophils % 86.4 % (38.7-73.9); Platelet Count 228 T/CUMM (130-400); Red Blood Count 2.84 MC/CUMM (3.8-5.5); Red Cell Distribution Width 19.7 % (9.3-17.3)
[2022-09-30 05:24] LABS: Band Neutrophils 6 % (0-10); Lymphocytes 5 % (20-55); Nucleated Red Blood Cells 1 /100 WBC (0-5); Total Cells Counted 100
[2022-09-30 05:25] LABS: Anisocytosis 1+; Burr Cells Slight; Hypochromia 1+; Target Cells Slight
[2022-09-30 05:26] LABS: Acanthocytes Few; Ovalocytes Slight; Platelet Estimate Normal
[2022-09-30 05:34] LABS: Albumin 1.3 G/DL (3.4-5.0); Bilirubin,Total 1.3 MG/DL (0.20-1.00); Calcium 7.6 MG/DL (8.5-10.1); Osmolality,Calculated 299.7 MOS/KG (273-304); Potassium 4.3 MMOL/L (3.5-5.1); Total Protein 5.2 G/DL (6.4-8.2)
[2022-09-30] MEDS ORDERED: AMIODARONE INJ 150 MG in DEXTROSE 5% 100 ML IV ONE (06:54)
[2022-09-30] MEDS ORDERED: AMIODARONE INJ 450 MG in DEXTROSE 5% 241 ML IV SCH (07:00)
[2022-09-30] MEDS: SODIUM BICARBONATE 650 MG TABLET PO SCH ×2 (09:31→22:41)
[2022-09-30] MEDS: DOCUSATE SODIUM 100 MG CAPSULE PO SCH ×2 (09:35→22:41)
[2022-09-30] MEDS: HEPARIN 5,000 UNIT/1 ML VIAL SUBCUT SCH ×2 (09:35→22:41)
[2022-09-30] MEDS: NICOTINE 14 MG/24 HR PATCH TRANSDERM SCH (09:36)
[2022-09-30] MEDS: CYANOCOBALAMIN 500 MCG TABLET PO SCH (09:36)
[2022-09-30] MEDS: PANTOPRAZOLE 40 MG TABLET PO SCH (09:37)
[2022-09-30] MEDS: NYSTATIN 500,000 UNIT/5 ML UDCUP SWISH/SWAL SCH ×4 (09:40→22:40)
[2022-09-30] MEDS: POLYETHYLENE GLYCOL POWDER 17 GM PACK PO SCH ×2 (09:40→22:41)
[2022-09-30] MEDS: MEROPENEM 500 MG in SODIUM CHLORIDE 0.9% 100 ML IV SCH ×2 (09:53→22:39)
[2022-09-30] MEDS: FERRIC GLUCONATE COMPLEX 125 MG in SODIUM CHLORIDE 0.9% 100 ML IV SCH (11:55)
[2022-09-30] MEDS: SUCRALFATE 1 GM/10 ML UDCUP PO SCH ×3 (13:03→22:42)
[2022-09-30] MEDS: AMIODARONE INJ 450 MG in DEXTROSE 5% 241 ML IV SCH (15:11)
[2022-09-30] MEDS ORDERED: VANCOMYCIN INJ 1,500 MG in SODIUM CHLORIDE 0.9% 500 ML IV ONE (17:00)
[2022-10-01 05:18] LABS: Basophils % 0.1 % (0.0-0.8); Hemoglobin 7.3 GM/DL (14.0-18.0); Immature Granulocytes % 1.3 %; Immature Granulocytes Absolute 0.29 #; Lymphocytes # 1.6 10*3/uL (1.4-4.0); Lymphocytes % 7.2 % (21.2-54.2); Mean Corpuscular HGB Conc 33.2 GM/DL (32-36); Mean Corpuscular Volume 78.9 FL (87-102); Mean Platelet Volume 10.3 FL (9.6-12.0); Monocytes % 4.4 % (1.7-12.7); Platelet Count 222 T/CUMM (130-400); Red Blood Count 2.79 MC/CUMM (3.8-5.5); Red Cell Distribution Width 19.9 % (9.3-17.3); White Blood Count 21.9 T/CUMM (4-12)
[2022-10-01 05:38] LABS: Lymphocytes 8 % (20-55); Platelet Estimate Adequate; Total Cells Counted 100
[2022-10-01 05:39] LABS: Hypochromia 1+; Microcytosis 1+; Ovalocytes Slight
[2022-10-01 05:53] LABS: Albumin 1.2 G/DL (3.4-5.0); Bilirubin,Total 1.5 MG/DL (0.20-1.00); Calcium 7.8 MG/DL (8.5-10.1); Osmolality,Calculated 299.7 MOS/KG (273-304); Total Protein 5.1 G/DL (6.4-8.2)
[2022-10-01] MEDS: AMIODARONE INJ 450 MG in DEXTROSE 5% 241 ML IV SCH (07:14)
[2022-10-01] MEDS: NICOTINE 14 MG/24 HR PATCH TRANSDERM SCH (09:33)
[2022-10-01] MEDS: SODIUM BICARBONATE 650 MG TABLET PO SCH ×2 (09:33→21:23)
[2022-10-01] MEDS: CYANOCOBALAMIN 500 MCG TABLET PO SCH (09:33)
[2022-10-01] MEDS: FERRIC GLUCONATE COMPLEX 125 MG in SODIUM CHLORIDE 0.9% 100 ML IV SCH (09:33)
[2022-10-01] MEDS: PANTOPRAZOLE 40 MG TABLET PO SCH (09:33)
[2022-10-01] MEDS: DOCUSATE SODIUM 100 MG CAPSULE PO SCH ×2 (09:33→21:24)
[2022-10-01] MEDS: POLYETHYLENE GLYCOL POWDER 17 GM PACK PO SCH ×2 (09:33→21:24)
[2022-10-01] MEDS: NYSTATIN 500,000 UNIT/5 ML UDCUP SWISH/SWAL SCH ×4 (09:33→21:24)
[2022-10-01] MEDS: SUCRALFATE 1 GM/10 ML UDCUP PO SCH ×4 (09:33→21:23)
[2022-10-01] MEDS: HEPARIN 5,000 UNIT/1 ML VIAL SUBCUT SCH ×2 (09:43→21:24)
[2022-10-01] MEDS: MEROPENEM 500 MG in SODIUM CHLORIDE 0.9% 100 ML IV SCH ×2 (11:19→21:30)
[2022-10-01] MEDS: SODIUM CHLORIDE IV SCH ×2 (11:29→22:12)
[2022-10-01] MEDS: AMIODARONE 200 MG TABLET PO SCH ×2 (11:29→21:24)
[2022-10-01] MEDS: SODIUM BICARB IV SCH ×2 (11:29→22:12)
[2022-10-01] MEDS: [UNRECOGNIZED DRUG - OTHER] IV SCH ×2 (11:29→22:12)
[2022-10-01] MEDS: MENTHOL/ZINC OXIDE OINT 71 GM JAR TOP SCH (22:07)
[2022-10-02 05:51] LABS: Basophils % 0.1 % (0.0-0.8); Hematocrit 22.9 VOL% (42.0-52.0); Hemoglobin 7.4 GM/DL (14.0-18.0); Immature Granulocytes % 1.1 %; Immature Granulocytes Absolute 0.23 #; Lymphocytes # 1.4 10*3/uL (1.4-4.0); Lymphocytes % 6.7 % (21.2-54.2); Mean Corpuscular HGB Conc 32.3 GM/DL (32-36); Mean Corpuscular Volume 80.6 FL (87-102); Mean Platelet Volume 11.2 FL (9.6-12.0); Monocytes # 0.9 10*3/uL (0.11-0.8); Monocytes % 4.3 % (1.7-12.7); Neutrophils % 87.8 % (38.7-73.9); Platelet Count 188 T/CUMM (130-400); Red Blood Count 2.84 MC/CUMM (3.8-5.5); White Blood Count 20.5 T/CUMM (4-12)
[2022-10-02 06:09] LABS: Calcium 8.1 MG/DL (8.5-10.1); Osmolality,Calculated 295.8 MOS/KG (273-304); Potassium 4.8 MMOL/L (3.5-5.1)
[2022-10-02 06:18] LABS: Band Neutrophils 3 % (0-10); Hypochromia Slight; Lymphocytes 7 % (20-55); Microcytosis 1+; Ovalocytes Slight; Target Cells Few; Total Cells Counted 100
[2022-10-02 06:19] LABS: Platelet Estimate Adequate; Polychromasia Slight
[2022-10-02] MEDS: CYANOCOBALAMIN 500 MCG TABLET PO SCH (10:52)
[2022-10-02] MEDS: SODIUM BICARBONATE 650 MG TABLET PO SCH ×2 (10:52→21:24)
[2022-10-02] MEDS: ASCORBIC ACID 500 MG TABLET PO SCH ×2 (10:52→21:22)
[2022-10-02] MEDS: DOCUSATE SODIUM 100 MG CAPSULE PO SCH ×2 (10:53→21:22)
[2022-10-02] MEDS: NYSTATIN 500,000 UNIT/5 ML UDCUP SWISH/SWAL SCH ×4 (10:53→21:22)
[2022-10-02] MEDS: PANTOPRAZOLE 40 MG TABLET PO SCH (10:53)
[2022-10-02] MEDS: SUCRALFATE 1 GM/10 ML UDCUP PO SCH ×4 (10:53→21:22)
[2022-10-02] MEDS: AMIODARONE 200 MG TABLET PO SCH ×2 (10:53→21:22)
[2022-10-02] MEDS: MEROPENEM 500 MG in SODIUM CHLORIDE 0.9% 100 ML IV SCH ×2 (10:57→21:23)
[2022-10-02] MEDS: HEPARIN 5,000 UNIT/1 ML VIAL SUBCUT SCH ×2 (11:05→21:24)
[2022-10-02] MEDS: NICOTINE 14 MG/24 HR PATCH TRANSDERM SCH (11:05)
[2022-10-02] MEDS: MENTHOL/ZINC OXIDE OINT 71 GM JAR TOP SCH ×2 (11:06→21:23)
[2022-10-02] MEDS: FERRIC GLUCONATE COMPLEX 125 MG in SODIUM CHLORIDE 0.9% 100 ML IV SCH (11:07)
[2022-10-02] MEDS: POLYETHYLENE GLYCOL POWDER 17 GM PACK PO SCH ×2 (11:24→21:22)
[2022-10-02] MEDS: SODIUM BICARB IV SCH ×2 (11:25→21:23)
[2022-10-02] MEDS: [UNRECOGNIZED DRUG - OTHER] IV SCH ×2 (11:25→21:23)
[2022-10-02] MEDS: SODIUM CHLORIDE IV SCH ×2 (11:25→21:23)
[2022-10-03 04:57] LABS: Basophils % 0.2 % (0.0-0.8); Eosinophils % 0.2 % (0.00-10.9); Hematocrit 24.5 VOL% (42.0-52.0); Hemoglobin 7.9 GM/DL (14.0-18.0); Immature Granulocytes % 1.2 %; Immature Granulocytes Absolute 0.24 #; Lymphocytes # 1.3 10*3/uL (1.4-4.0); Lymphocytes % 6.7 % (21.2-54.2); Mean Corpuscular HGB Conc 32.2 GM/DL (32-36); Mean Corpuscular Volume 80.3 FL (87-102); Mean Platelet Volume 10.6 FL (9.6-12.0); Monocytes # 0.8 10*3/uL (0.11-0.8); Neutrophils % 87.7 % (38.7-73.9); Platelet Count 190 T/CUMM (130-400); Red Blood Count 3.05 MC/CUMM (3.8-5.5); Red Cell Distribution Width 20.5 % (9.3-17.3); White Blood Count 19.8 T/CUMM (4-12)
[2022-10-03 05:16] LABS: Albumin 1.1 G/DL (3.4-5.0); Bilirubin,Direct 1.42 MG/DL (0.0-0.20); Bilirubin,Indirect 0.2 MG/DL (0.0-1.0); Bilirubin,Total 1.6 MG/DL (0.20-1.00); Total Protein 5.1 G/DL (6.4-8.2)
[2022-10-03 05:24] LABS: Calcium 7.8 MG/DL (8.5-10.1); Osmolality,Calculated 299.5 MOS/KG (273-304); Potassium 3.7 MMOL/L (3.5-5.1)
[2022-10-03] MEDS: MEROPENEM 500 MG in SODIUM CHLORIDE 0.9% 100 ML IV SCH (07:26)
[2022-10-03] MEDS: [UNRECOGNIZED DRUG - OTHER] IV SCH (07:26)
[2022-10-03] MEDS: SUCRALFATE 1 GM/10 ML UDCUP PO SCH ×4 (07:26→22:04)
[2022-10-03] MEDS: SODIUM BICARB IV SCH (07:26)
[2022-10-03] MEDS: SODIUM CHLORIDE IV SCH (07:26)
[2022-10-03] MEDS: FERRIC GLUCONATE COMPLEX 125 MG in SODIUM CHLORIDE 0.9% 100 ML IV SCH (09:03)
[2022-10-03] MEDS: NYSTATIN 500,000 UNIT/5 ML UDCUP SWISH/SWAL SCH ×4 (09:06→22:05)
[2022-10-03] MEDS: MENTHOL/ZINC OXIDE OINT 71 GM JAR TOP SCH ×2 (09:06→22:04)
[2022-10-03] MEDS: CYANOCOBALAMIN 500 MCG TABLET PO SCH (09:07)
[2022-10-03] MEDS: DOCUSATE SODIUM 100 MG CAPSULE PO SCH ×2 (09:08→22:04)
[2022-10-03] MEDS: SODIUM BICARBONATE 650 MG TABLET PO SCH ×2 (09:08→22:05)
[2022-10-03] MEDS: AMIODARONE 200 MG TABLET PO SCH (09:08)
[2022-10-03] MEDS: PANTOPRAZOLE 40 MG TABLET PO SCH (09:08)
[2022-10-03] MEDS: ASCORBIC ACID 500 MG TABLET PO SCH ×2 (09:08→22:05)
[2022-10-03] MEDS: POLYETHYLENE GLYCOL POWDER 17 GM PACK PO SCH ×2 (09:09→22:04)
[2022-10-03] MEDS: HEPARIN 5,000 UNIT/1 ML VIAL SUBCUT SCH ×2 (09:09→22:04)
[2022-10-03] MEDS: NICOTINE 14 MG/24 HR PATCH TRANSDERM SCH (10:13)
[2022-10-03] MEDS ORDERED: AMIODARONE 200 MG TABLET PO SCH (11:59)
[2022-10-03] MEDS ORDERED: POTASSIUM CHLORIDE 20 MEQ TABLET PO ONE (12:30)
[2022-10-03] MEDS ORDERED: MAGNESIUM SULF RIDER 2 GM/50 ML PREMIX IV ONE (13:00)
[2022-10-03] MEDS ORDERED: SODIUM CHLORIDE 0.9% 1,000 ML IV PRN ×2 (16:32→16:52)
[2022-10-03] MEDS ORDERED: AMIODARONE INJ 450 MG in DEXTROSE 5% 241 ML IV SCH (17:00)
[2022-10-03] MEDS: AMIODARONE INJ 450 MG in DEXTROSE 5% 241 ML IV SCH (23:26)
[2022-10-04] MEDS: AMIODARONE INJ 450 MG in DEXTROSE 5% 241 ML IV SCH ×2 (02:05→15:30)
[2022-10-04 05:35] LABS: Basophils % 0.2 % (0.0-0.8); Eosinophils % 0.2 % (0.00-10.9); Hematocrit 31.4 VOL% (42.0-52.0); Hemoglobin 10.2 GM/DL (14.0-18.0); Immature Granulocytes % 1.4 %; Immature Granulocytes Absolute 0.31 #; Lymphocytes # 1.6 10*3/uL (1.4-4.0); Lymphocytes % 7.6 % (21.2-54.2); Mean Corpuscular HGB Conc 32.5 GM/DL (32-36); Mean Platelet Volume 10.5 FL (9.6-12.0); Monocytes % 4.6 % (1.7-12.7); Platelet Count 193 T/CUMM (130-400); Red Blood Count 3.83 MC/CUMM (3.8-5.5); Red Cell Distribution Width 20.6 % (9.3-17.3); White Blood Count 21.7 T/CUMM (4-12)
[2022-10-04 06:06] LABS: Calcium 8.5 MG/DL (8.5-10.1); Potassium 4.2 MMOL/L (3.5-5.1)
[2022-10-04 06:16] LABS: Calcium 8.5 MG/DL (8.5-10.1); Osmolality,Calculated 296.7 MOS/KG (273-304); Potassium 4.2 MMOL/L (3.5-5.1)
[2022-10-04 06:26] LABS: Lymphocytes 3 % (20-55); Platelet Estimate Adequate; Total Cells Counted 100
[2022-10-04 06:27] LABS: Hypochromia Slight; Microcytosis Slight; Target Cells Slight
[2022-10-04] MEDS: NICOTINE 14 MG/24 HR PATCH TRANSDERM SCH (09:31)
[2022-10-04] MEDS: HEPARIN 5,000 UNIT/1 ML VIAL SUBCUT SCH ×2 (09:32→21:57)
[2022-10-04] MEDS: CYANOCOBALAMIN 500 MCG TABLET PO SCH (09:33)
[2022-10-04] MEDS: MENTHOL/ZINC OXIDE OINT 71 GM JAR TOP SCH ×2 (09:33→21:57)
[2022-10-04] MEDS: DOCUSATE SODIUM 100 MG CAPSULE PO SCH ×2 (09:33→21:58)
[2022-10-04] MEDS: SODIUM BICARBONATE 650 MG TABLET PO SCH ×2 (09:33→21:57)
[2022-10-04] MEDS: ASCORBIC ACID 500 MG TABLET PO SCH ×2 (09:33→21:56)
[2022-10-04] MEDS: SUCRALFATE 1 GM/10 ML UDCUP PO SCH ×5 (09:33→22:17)
[2022-10-04] MEDS: NYSTATIN 500,000 UNIT/5 ML UDCUP SWISH/SWAL SCH ×4 (09:33→21:58)
[2022-10-04] MEDS: PANTOPRAZOLE 40 MG TABLET PO SCH (09:33)
[2022-10-04] MEDS: POLYETHYLENE GLYCOL POWDER 17 GM PACK PO SCH ×2 (10:46→21:58)
[2022-10-04] MEDS ORDERED: FUROSEMIDE 40 MG/4 ML VIAL IV ONE (11:05)
[2022-10-04 11:45] LABS: Bacteria,Urine Occasional /HPF (Few); Bilirubin,Urine Small mg/dL (Negative); Blood, Urine Negative (Negative); Glucose,Urine (UA) Negative (Negative); Hyaline Casts,Urine 3 /LPF (0-3); Ketones,Urine Trace mg/dL (Negative); Mucus,Urine Occasional /LPF (Occasional); Nitrite,Urine Negative (Negative); Protein,Urine 30 mg/dL (Negative); RBC,Urine 5 /HPF (0-4); Squamous Epithelial Cell,Urine Occasional /HPF (0-10); Urine Appearance Clear (Clear); Urine Color Dark Yellow (Yellow); Urine Urobilinogen 0.2 eU/dL (<2.0)
[2022-10-04] MEDS: AMIODARONE 200 MG TABLET PO SCH ×2 (15:11→21:56)
[2022-10-05 05:25] LABS: Basophils % 0.2 % (0.0-0.8); Eosinophils % 0.2 % (0.00-10.9); Hematocrit 28.5 VOL% (42.0-52.0); Hemoglobin 9.3 GM/DL (14.0-18.0); Immature Granulocytes % 1.4 %; Immature Granulocytes Absolute 0.28 #; Lymphocytes # 1.8 10*3/uL (1.4-4.0); Lymphocytes % 8.9 % (21.2-54.2); Mean Corpuscular HGB Conc 32.6 GM/DL (32-36); Mean Corpuscular Volume 81.7 FL (87-102); Mean Platelet Volume 10.4 FL (9.6-12.0); Monocytes # 0.8 10*3/uL (0.11-0.8); Monocytes % 4.2 % (1.7-12.7); Neutrophils % 85.1 % (38.7-73.9); Platelet Count 172 T/CUMM (130-400); Red Blood Count 3.49 MC/CUMM (3.8-5.5); Red Cell Distribution Width 21.1 % (9.3-17.3); White Blood Count 19.83 T/CUMM (4-12)
[2022-10-05 06:02] LABS: Calcium 8.5 MG/DL (8.5-10.1); Potassium 4.3 MMOL/L (3.5-5.1)
[2022-10-05] MEDS: NICOTINE 14 MG/24 HR PATCH TRANSDERM SCH (09:17)
[2022-10-05] MEDS: SODIUM BICARBONATE 650 MG TABLET PO SCH ×2 (09:24→21:18)
[2022-10-05] MEDS: ASCORBIC ACID 500 MG TABLET PO SCH ×2 (09:24→21:19)
[2022-10-05] MEDS: HEPARIN 5,000 UNIT/1 ML VIAL SUBCUT SCH ×2 (09:24→21:24)
[2022-10-05] MEDS: CYANOCOBALAMIN 500 MCG TABLET PO SCH (09:25)
[2022-10-05] MEDS: AMIODARONE 200 MG TABLET PO SCH ×2 (09:25→21:20)
[2022-10-05] MEDS: PANTOPRAZOLE 40 MG TABLET PO SCH (09:25)
[2022-10-05] MEDS: DOCUSATE SODIUM 100 MG CAPSULE PO SCH ×2 (09:25→22:17)
[2022-10-05] MEDS: SUCRALFATE 1 GM/10 ML UDCUP PO SCH ×4 (09:25→21:18)
[2022-10-05] MEDS: POLYETHYLENE GLYCOL POWDER 17 GM PACK PO SCH ×2 (09:26→22:17)
[2022-10-05] MEDS: NYSTATIN 500,000 UNIT/5 ML UDCUP SWISH/SWAL SCH ×4 (09:26→22:17)
[2022-10-05] MEDS: MENTHOL/ZINC OXIDE OINT 71 GM JAR TOP SCH ×2 (09:27→21:18)
[2022-10-05] MEDS ORDERED: FUROSEMIDE 40 MG/4 ML VIAL IV ONE (09:31)
[2022-10-06 05:21] LABS: Basophils % 0.2 % (0.0-0.8); Eosinophils % 0.1 % (0.00-10.9); Hematocrit 27.4 VOL% (42.0-52.0); Hemoglobin 8.8 GM/DL (14.0-18.0); Immature Granulocytes % 1.2 %; Immature Granulocytes Absolute 0.27 #; Lymphocytes # 1.5 10*3/uL (1.4-4.0); Lymphocytes % 6.9 % (21.2-54.2); Mean Corpuscular HGB Conc 32.1 GM/DL (32-36); Mean Corpuscular Volume 82.8 FL (87-102); Mean Platelet Volume 10.6 FL (9.6-12.0); Monocytes # 0.8 10*3/uL (0.11-0.8); Monocytes % 3.5 % (1.7-12.7); Neutrophils % 88.1 % (38.7-73.9); Platelet Count 166 T/CUMM (130-400); Red Blood Count 3.31 MC/CUMM (3.8-5.5); Red Cell Distribution Width 21.5 % (9.3-17.3); White Blood Count 21.87 T/CUMM (4-12)
[2022-10-06 05:55] LABS: Band Neutrophils 3 % (0-10); Eosinophils 1 % (0-10); Hypochromia Slight; Lymphocytes 5 % (20-55); Microcytosis Slight; Ovalocytes Slight; Platelet Estimate Adequate; Total Cells Counted 100
[2022-10-06 05:59] LABS: Calcium 8.7 MG/DL (8.5-10.1); Osmolality,Calculated 297.1 MOS/KG (273-304); Potassium 4.4 MMOL/L (3.5-5.1)
[2022-10-06] MEDS: SUCRALFATE 1 GM/10 ML UDCUP PO SCH ×4 (09:16→21:48)
[2022-10-06] MEDS: NYSTATIN 500,000 UNIT/5 ML UDCUP SWISH/SWAL SCH ×4 (09:16→21:50)
[2022-10-06] MEDS: POLYETHYLENE GLYCOL POWDER 17 GM PACK PO SCH ×2 (09:16→21:49)
[2022-10-06] MEDS: DOCUSATE SODIUM 100 MG CAPSULE PO SCH ×2 (09:16→21:48)
[2022-10-06] MEDS: SODIUM BICARBONATE 650 MG TABLET PO SCH ×2 (09:16→21:48)
[2022-10-06] MEDS: ASCORBIC ACID 500 MG TABLET PO SCH ×2 (09:17→21:48)
[2022-10-06] MEDS: CYANOCOBALAMIN 500 MCG TABLET PO SCH (09:17)
[2022-10-06] MEDS: HEPARIN 5,000 UNIT/1 ML VIAL SUBCUT SCH ×2 (09:17→21:47)
[2022-10-06] MEDS: PANTOPRAZOLE 40 MG TABLET PO SCH (09:17)
[2022-10-06] MEDS: AMIODARONE 200 MG TABLET PO SCH ×2 (09:17→21:49)
[2022-10-06] MEDS: MENTHOL/ZINC OXIDE OINT 71 GM JAR TOP SCH ×2 (09:18→21:48)
[2022-10-06] MEDS: NICOTINE 14 MG/24 HR PATCH TRANSDERM SCH (09:20)
[2022-10-06] MEDS: LACTATED RINGERS 1,000 ML IV SCH ×2 (10:47→21:45)
[2022-10-07] MEDS: LACTATED RINGERS 1,000 ML IV SCH (04:36)
[2022-10-07 04:59] LABS: Basophils % 0.1 % (0.0-0.8); Eosinophils % 0.1 % (0.00-10.9); Hematocrit 28.5 VOL% (42.0-52.0); Hemoglobin 9.2 GM/DL (14.0-18.0); Immature Granulocytes % 1.8 %; Immature Granulocytes Absolute 0.39 #; Lymphocytes # 1.3 10*3/uL (1.4-4.0); Lymphocytes % 5.7 % (21.2-54.2); Mean Corpuscular HGB Conc 32.3 GM/DL (32-36); Mean Corpuscular Volume 81.9 FL (87-102); Mean Platelet Volume 10.8 FL (9.6-12.0); Monocytes # 0.7 10*3/uL (0.11-0.8); Monocytes % 3.1 % (1.7-12.7); Neutrophils % 89.2 % (38.7-73.9); Platelet Count 150 T/CUMM (130-400); Red Blood Count 3.48 MC/CUMM (3.8-5.5); Red Cell Distribution Width 22.4 % (9.3-17.3); White Blood Count 21.84 T/CUMM (4-12)
[2022-10-07 05:19] LABS: Albumin 1.2 G/DL (3.4-5.0); Bilirubin,Direct 2.36 MG/DL (0.0-0.20); Bilirubin,Indirect 0.3 MG/DL (0.0-1.0); Bilirubin,Total 2.7 MG/DL (0.20-1.00); Total Protein 5.1 G/DL (6.4-8.2)
[2022-10-07 05:22] LABS: Calcium 8.2 MG/DL (8.5-10.1); Potassium 4.6 MMOL/L (3.5-5.1)
[2022-10-07 05:26] LABS: Hypochromia Slight; Lymphocytes 1 % (20-55); Microcytosis Slight; Platelet Estimate Normal; Total Cells Counted 100
[2022-10-07] MEDS: SUCRALFATE 1 GM/10 ML UDCUP PO SCH ×2 (07:57→11:25)
[2022-10-07] MEDS: NYSTATIN 500,000 UNIT/5 ML UDCUP SWISH/SWAL SCH ×2 (10:12→12:27)
[2022-10-07] MEDS: DOCUSATE SODIUM 100 MG CAPSULE PO SCH (10:12)
[2022-10-07] MEDS: POLYETHYLENE GLYCOL POWDER 17 GM PACK PO SCH (10:12)
[2022-10-07] MEDS: CYANOCOBALAMIN 500 MCG TABLET PO SCH (10:13)
[2022-10-07] MEDS: ASCORBIC ACID 500 MG TABLET PO SCH (10:13)
[2022-10-07] MEDS: SODIUM BICARBONATE 650 MG TABLET PO SCH (10:13)
[2022-10-07] MEDS: PANTOPRAZOLE 40 MG TABLET PO SCH (10:13)
[2022-10-07] MEDS: NICOTINE 14 MG/24 HR PATCH TRANSDERM SCH (10:25)
[2022-10-07] MEDS: AMIODARONE 200 MG TABLET PO SCH (10:25)
[2022-10-07] MEDS: MENTHOL/ZINC OXIDE OINT 71 GM JAR TOP SCH (10:27)
[2022-10-07] MEDS: HEPARIN 5,000 UNIT/1 ML VIAL SUBCUT SCH (10:27)
[2022-10-07 11:47] VITALS: BP 93/57
== END 2022-10-07 13:22 | disposition home or self-care (01) | DRG 435 ==
LOC: N.ED 23:02 → N.TELES 09-29 03:58 → SUATTDRO 09-29 03:58 → N.TELES 09-29 06:30
PROVIDERS: ADMIT Internal Medicine; ATTEND Internal Medicine